=== PATIENT | female | born 1995 | race Caucasian/White ===

== ENCOUNTER 2020-09-01 22:01 | Emergency (ER) | payer OTHER | END 2020-09-02 03:09 | disposition home or self-care (01) | LOC: FER 22:01 | DX: F10.129 Alcohol abuse with intoxication, unspecified (principal); R10.13 Epigastric pain; F32.9 Major depressive disorder, single episode, unspecified; Z79.899 Other long term (current) drug therapy; Y90.6 Blood alcohol level of 120-199 mg/100 ml | CPT/HCPCS: 36415; G0480; J3411; J3480 ==